=== PATIENT | female | born 2000 | race Two or more races ===

== ENCOUNTER 2022-04-14 19:20 | Emergency (ER) | payer OTHER ==
[~2022-04-14] VITALS: Ht 165.1 cm; Wt 101.6 kg
[2022-04-14] MEDS ORDERED: MEDROXYPROGESTE10 MG PO (22:04)
== END 2022-04-14 22:17 | disposition home or self-care (01) ==
LOC: ER 19:20
DX: N93.9 Abnormal uterine and vaginal bleeding, unspecified (principal)